=== PATIENT | male | born 1935 | race African-American/Black ===

== ENCOUNTER → 2018-05-31 09:14 | Outpatient (CLI) | payer MEDICARE, MEDICAID, SELFPAY ==
[2018-05-31 09:57] VITALS: PULSE 73; PULSE 79; PULSE 86; PULSE 87; PULSE 90; PULSE 92; PULSE 93; PULSE 94; O2SAT 81; O2SAT 84; O2SAT 85; O2SAT 86; O2SAT 90; O2SAT 92; O2SAT 95
--- NOTE | 2018-05-31 10:00 | CPS ---
Patient came in on own home portable concentrator unit at 4 lpm pulse dose. Patient SpO2 87% on room air. Placed patient back on home O2 to start test by the 1st minute patient was 85% and stopped walking, SpO2 continued to drop to 81%. Placed patient on 4 lpm continuous, recovered to 91%. Turned patient up to 6 lpm by the 4th minute, patient took multiple breaks throughout the rest of the test and was obviously very short of breath, SpO2 86% or lower the rest of the test.
--- NOTE | 2018-05-31 16:34 | WT_ITS ---
PSN 6 Minute Walk Test - 6 Minute Walk Test 6 Minute Walk Test: 6 Minute Walk Test PSN:6-Minute Walk Test Start: 05/31/18 09: 56 Freq: Status: Active Protocol: RESP.6MINW Document 05/31/18 09:57 KEVIN (Rec: 05/31/18 10:08 KEVIN [id number]) 6 Minute Walk Test Date Performed 05/31/18 Time Performed 09:30 Height 5 ft 10 in Weight: 100.698 kg Weight in Pounds 222.[address]: Yobany Bledsoe Assistive device used: None Pre-test Oxygen Flow Rate (L/min) (L/min) 4 Oxygen Delivery Method Nasal Cannula Pulse Ox (%) 92 Pulse Rate (60-100 beats/min) 73 Dyspnea Lissy Scale (0-10) 0 Exertion Lissy Scale (6-20) 6 1st minute Oxygen Flow Rate (L/min) (L/min) 4 Oxygen Delivery Method Nasal Cannula Pulse Ox (%) 81 Pulse Rate (60-100 beats/min) 87 Number of Rests Taken 1 2nd minute Oxygen Flow Rate (L/min) (L/min) 4 Oxygen Delivery Method Nasal Cannula Pulse Ox (%) 90 Pulse Rate (60-100 beats/min) 86 3rd minute Oxygen Flow Rate (L/min) (L/min) 4 Oxygen Delivery Method Nasal Cannula Pulse Ox (%) 84 Pulse Rate (60-100 beats/min) 90 Number of Rests Taken 1 4th minute Oxygen Flow Rate (L/min) (L/min) 6 Oxygen Delivery Method Nasal Cannula Pulse Ox (%) 86 Pulse Rate (60-100 beats/min) 92 Number of Rests Taken 1 5th minute Oxygen Flow Rate (L/min) (L/min) 6 Oxygen Delivery Method Nasal Cannula Pulse Ox (%) 86 Pulse Rate (60-100 beats/min) 93 Number of Rests Taken 1 6th minute Oxygen Flow Rate (L/min) (L/min) 6 Oxygen Delivery Method Nasal Cannula Pulse Ox (%) 85 Pulse Rate (60-100 beats/min) 94 Dyspnea Lissy Scale (0-10) 5 Exertion Lissy Scale (6-20) 15 Post-test Oxygen Flow Rate (L/min) (L/min) 6 Oxygen Delivery Method Nasal Cannula Pulse Ox (%) 95 Pulse Rate (60-100 beats/min) 79 Full Laps Walked 6 Partial Lap, Number of Tiles Walked 0 Total Distance Walked (ft) 354 05/31/18 10:00 Cardiopulmonary Services by Kayla Abarca Patient came in on own home portable concentrator unit at 4 lpm pulse dose. Patient SpO2 87% on room air. Placed patient back on home O2 to start test by the 1st minute patient was 85% and stopped walking, SpO2 continued to drop to 81 %. Placed patient on 4 lpm continuous, recovered to 91%. Turned patient up to 6 lpm by the 4th minute, patient took multiple breaks throughout the rest of the test and was obviously very short of breath, SpO2 86% or lower the rest of the test. Initialized on 05/31/18 10:00 - END OF NOTE - Interpretation Interpretation: The patient was noted to be 87% on room air. The patient was then placed on 4 L pulse dose by patient's home unit. Patient was then placed on continuous flow and despite 6 L/min, had saturations in the mid 80s throughout testing. In total, patient could only tolerate 354 feet of ambulation despite 6 L nasal cannula and required for breaks. These findings are consistent with a respiratory limitation exercise tolerance. - Recommendations Recommendations: The patient requires 4 L pulse dose while at rest. The patient should take measures to decrease exercise effort, such as a motorized scooter, for ambulation as patient was unable to control saturations despite 6 L nasal cannula oxygen.
== END ==
PROVIDERS: Family Provider Family Medicine; PCP Family Medicine; Visit Provider Internal Medicine Critical Care Medicine
DX: C34.91 Malignant neoplasm of unspecified part of right bronchus or lung (principal); C34.92 Malignant neoplasm of unspecified part of left bronchus or lung; J96.11 Chronic respiratory failure with hypoxia; J47.9 Bronchiectasis, uncomplicated
CPT/HCPCS: 94618

== ENCOUNTER → 2018-06-08 08:48 | Outpatient (CLI) | payer MEDICARE, MEDICAID, SELFPAY ==
--- NOTE | 2018-06-08 11:15 | PFTCOMP ---
COMPLETE PULMONARY FUNCTION TEST INTERPRETATION Brief HPI: Patient is a 82 year old Black male, currently under the care of myself, who presents to [facility] for complete pulmonary function tests secondary to diagnosis of COPD. Respiratory therapist reports good effort and reproducible results. Interpretation: Forced expiration spirometry shows no large airways obstructive ventilatory defect with an FEV1 of 49% predicted. There is no significant bronchodilator response by ATS criteria. Spirograms are of good quality and plateau normally. The respiratory flow volume loop shows a normal pattern. Lung volumes by body plethysmography show a decreased total lung capacity at 3.94 L, 62% predicted. All other lung volumes are reduced symmetrically. Diffusion capacity by carbon monoxide is decreased at 38% predicted. The airway resistance is elevated. No previous pulmonary function tests were available for review. Impression: Moderate restrictive ventilatory defect with a reduction diffusing capacity consistent with interstitial lung disease. Comparison to previous study would be helpful.
--- NOTE | 2018-06-08 11:18 | PFTCOMP_ITS ---
COMPLETE PULMONARY FUNCTION TEST INTERPRETATION Brief HPI: Patient is a 82 year old Black male, currently under the care of myself, who presents to [facility] for complete pulmonary function tests secondary to diagnosis of COPD. Respiratory therapist reports good effort and reproducible results. Interpretation: Forced expiration spirometry shows no large airways obstructive ventilatory defect with an FEV1 of 49% predicted. There is no significant bronchodilator response by ATS criteria. Spirograms are of good quality and plateau normally. The respiratory flow volume loop shows a normal pattern. Lung volumes by body plethysmography show a decreased total lung capacity at 3.94 L, 62% predicted. All other lung volumes are reduced symmetrically. Diffusion capacity by carbon monoxide is decreased at 38% predicted. The airway resistance is elevated. No previous pulmonary function tests were available for review. Impression: Moderate restrictive ventilatory defect with a reduction diffusing capacity consistent with interstitial lung disease. Comparison to previous study would be helpful.
== END ==
PROVIDERS: Family Provider Family Medicine; PCP Family Medicine; Visit Provider Internal Medicine Critical Care Medicine
DX: C34.91 Malignant neoplasm of unspecified part of right bronchus or lung (principal); C34.92 Malignant neoplasm of unspecified part of left bronchus or lung; J47.9 Bronchiectasis, uncomplicated; J96.11 Chronic respiratory failure with hypoxia
CPT/HCPCS: 94060; 94726; 94729

== ENCOUNTER → 2018-09-29 11:24 | Outpatient (CLI) | payer MEDICARE, MEDICAID, SELFPAY ==
[2018-08-23 09:37] VITALS: BMI 32.3
[2018-09-29 11:47] LABS: Mucous, Urine 0 SEEN /hpf (<or=2+)
[2018-09-29 12:07] LABS: Color, Urine Yellow (Yellow); Glucose, Dipstick Normal (Normal); Ketone-Dipstick Negative (Negative); Leukocyte Esterase-Dipstick 500 /ul (Negative); Nitrite-Dipstick Negative (Negative); Occult Blood-Urine 10 /ul (Negative); Protein-Dipstick Negative (Negative); Urine Bilirubin Dipstick Negative (Negative); Urine Clarity Cloudy (Clear); Urine Urobilinogen 1 mg/dl (Normal); Urine pH 6.5 (5.0 - 8.0)
[2018-09-29 12:16] LABS: Bacteria 4+ /hpf (None Seen); Red Blood Cells-Urine 0-5 SEEN /hpf (0-5); Squamous Epithelial Cells - UA 0-5 SEEN /hpf (0-5); White Blood Cells >100 SEEN /hpf (0-5)
--- OUTSIDE RECORDS SUMMARY | 2018-12-01 09:04 | XMS RPT_ITS ---
:1935 Author Organization OHIP Care Team Providers Name Role Phone SKYLAR CM Referring Unavailable SKYLAR CM Attending Unavailable JACQUIE REECE CNP Attending Unavailable DEVIKA MAYEN, DR. BECKY Chris Primary Care Unavailable ROSLYN VALLE MD Attending Unavailable DEVIKA MAYEN, DR. BECKY Chris Primary Care Unavailable Yobany Bledsoe Attending Unavailable BECKY JULIAN Referring Unavailable Ericka Contreras Attending Unavailable Ericka Contreras Referring Unavailable BECKY JULIAN Primary Care Unavailable Richa Hwang Attending Unavailable Yobany Bledsoe Attending Unavailable BECKY JULIAN Referring Unavailable Rakan, Yobany Attending Unavailable Rakan, Yobany Referring Unavailable DEVIKA, BECKY Primary Care Unavailable Rakan, Yobany Attending Unavailable Rakan, Yobany Referring Unavailable BECKY JULIAN Primary Care Unavailable Rakan, Yobany Attending Unavailable Rakan, Yobany Referring Unavailable Rakan, Yobany Attending Unavailable Rakan, Yobany Referring Unavailable PROBLEMS PROBLEMS DATE TYPE CONDITION / CODE ATTENDING STATUS SOURCE 06/21/2018 Active Pain in left NA Active [facility] shoulder / [facility] [place] M25.512(ICD-10) Repository 07/20/2018 Unknown 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, Yobany Active [facility] unspecified part of [facility] right bronchus or Repository lung / C34.91(ICD-10) 06/17/2018 Unknown J44.9 - Chronic Rakan, Yobany Active [facility] obstructive [facility] pulmonary disease, Hospital unspecified / Repository J44.9(ICD-10) 05/21/2018 Unknown J47.9 - Raakn, Yobany Active [facility] Bronchiectasis, Community uncomplicated / Hospital J47.9(ICD-10) Repository 05/21/2018 Unknown C34.92 - Malignant Rakan, Yobany Active [facility] unspecified part of Hospital left bronchus or Repository lung / C34.92(ICD-10) 05/21/2018 Unknown J96.11 - Chronic Rakan, Yobany Active [facility] respiratory failure Community with hypoxia / Hospital J96.11(ICD-10) Repository PROCEDURES PROCEDURES No Procedure Records FoundRESULTS RESULTS URINALYSIS, COMPLETE Collected: 09/29/2018 Status: F Source: [place] 11:00 AM [facility] REPOSITORY Order Comment: How was Urine Obtained? CLEAN CATCH TYPE CODE TESTS RESULT OUT OF RANGE REFERENCE UNITS LAB L400.3000 Yellow COLOR Normal Yellow LAB L400.3050 Clear Normal CLARITY Cloudy LAB L400.3200 Normal mg/dl Normal GLUCOSE, UR Normal LAB L400.3300 Negative mg/dL Normal BILIRUBIN URINE Negative LAB L400.3400 Negative mg/dl Normal KETONE UR Negative LAB L400.3465 1.002-1.030 Normal SP.GR. DIPSTX 1.010 LAB L400.3550 5.0 - 8.0 pH UR Normal 6.5 LAB L400.3600 Negative mg/dl PROT Normal DIPSTX Negative LAB L400.3700 Normal mg/dl High 1 UROBILI LAB L400.3750 Negative Normal NITRITE UR Negative LAB L400.3780 Negative /ul High 10 OCCULT BLOOD-UR LAB L400.3800 Negative /ul High LEUK ESTERASE 500 LAB L400.4050 0-5 /hpf WBC Normal >100 SEEN LAB L400.4100 0-5 /hpf Normal RBC-UA 0-5 SEEN LAB L400.4150 0-5 /hpf SQUAM Normal EPI 0-5 SEEN LAB L400.4300 None Seen /hpf 4+ Normal BACTERIA LAB L400.4350 <or=2+ /hpf 0 Normal MUCUS, URINE SEEN Performed By: #### L400.0001 #### [facility] [address] [place], [place], [id number] Observed: 09/29/2018 Status: F Source: [place] CULTURE, URINE 11:00 AM [facility] REPOSITORY Urine Culture ORGANISM 1: Klebsiella pneumoniae sp pneum [place] Count >100,000 Klebsiella pneumoniae sp pneum: REACTION Ampicillin $ >=32 R Ampicillin/Sulbactam $ 4 S Cefazolin $ <=4 S Cefepime $ <=0.12 S Ceftazidime *NF <=1 S Ceftriaxone $ <=0.25 S Ciprofloxacin $ <=0.25 S Ertapenim $$$ <=0.12 S ESBL NEG Gentamicin $ <=1 S Imipenem *NF <=0.25 S Levofloxacin $ <=0.12 S Nitrofurantoin $ 64 I Piperacillin/Tazobactam $$ <=4 S Tobramycin $ <=1 S Trimethoprim/Sulfametho $ <=20 S (NF) indicates non-formulary drug at [facility]. Approval by Infectious Disease Specialist required before non-formulary drugs may be ordered and/or dispensed. Performed By: #### M100.0650 #### [facility] [address] [place], [place], [id number] PULMONARY VISIT REPORT Observed: 08/23/2018 Status: F Source: [place] 10:10 AM [facility] REPOSITORY [facility] [place] [address] [place], [place] [address] OFFICE VISIT Date of Service: 08/23/18 MR#: [id number] Acct: [id number] Name: ISAURO JOHN Jr. Rep #: [id number] : 1935 Provider: Yobany Bledsoe MD Age/Sex: 83/M Location: [facility] [place] Status: Signed Assessment AND Plan Problems 1. Bronchiectasis without complication J47.9 2. Stage 3 severe COPD by GOLD classification J44.9 3. Chronic respiratory failure with hypoxia J96.11 4. History of lung cancer Z85.118 5. CHF (congestive heart failure), NYHA class III I50.9 Plan Patient's pulmonary function tests are not significantly changed from previous testing completed by Dr. Javed. Patient is not getting any signs or symptoms of acute exacerbation at this time. Patient does have a history of lung resection, which does account for patient's restriction on pulmonary function testing. Patient is currently on triple therapy and tolerating well. Stressed to the patient that oxygen should be placed at 6 L at all times to minimize the saturations. Signs and symptoms of exacerbation and sick policy were reviewed in detail. Patient voiced understanding. Did discuss about using a power wheelchair, but patient states his apartment is currently on the second floor and this would not be an option for him. Some of patient's lower extremity swelling are likely secondary to pulmonary hypertension associated with chronic hypoxemia. Stressed to the patient but saturation should be above 90% at all times. Increased oxygen to 6 L/min at all times. Continue current therapy. HPI 3 M FU: Chief Complaint: Test results Details: Patient is an 83-year-old black male, currently under the care of Dr. Julian, who presents for evaluation secondary to recent test results. Since last visit, patient denies any ER visits, hospitalizations or prednisone burst. Patient overall feels subjectively unchanged compared to previous. Patient reports that he has been compliant with inhalers and aerosols as prescribed. Patient denies any complications such as thrush, hoarseness or sore throat. Patient states he has been using oxygen at 4 L/min at all times. Patient does not routinely check his oxygen saturations. Patient continues to have a cough productive of clear to white sputum, typically in the morning. This has not changed recently. Patient reports that he lives on a second floor apartment. Patient used a motorized scooter in the past. Patient does have a concentrator that will go up to 6 L/min. Patient denies any syncopal or trauma events. Patient does have significant lower extremity edema on exam, but states this is about his baseline. Patient states his right leg typically swells more than the left. Patient denies any dietary indiscretions and states he has been compliant with Lasix therapy. 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 Accompanied by: Self Is patient in pain?: No Allergies ramipril [From [employer]] Allergy (Verified 08/23/18 09:37) erythema multiforme LISA Inhibitors Adverse Reaction (Verified 08/23/18 09:37) Hives Medications allopurinol 300 mg tablet 300 mg PO DAILY 05/14/18 [History Confirmed 08/23/18] amlodipine 10 mg tablet 10 mg PO DAILY 05/14/18 [History Confirmed 08/23/18] atorvastatin 20 mg tablet 20 mg PO DAILY 05/14/18 [History Confirmed 08/23/18] benzonatate 100 mg capsule 100 mg PO .qid PRN cap 05/14/18 [History Confirmed 08/23/18] budesonide-formoterol HFA 80 mcg-4.5 mcg/actuation aerosol inhaler 2 puff INHALATION BID 05/14/18 [History Confirmed 08/23/18] clotrimazole-betamethasone 1 %-0.05 % topical cream 1 applic TOPICAL BID 05/14/18 [History Confirmed 08/23/18] finasteride 5 mg tablet 5 mg PO DAILY 05/14/18 [History Confirmed 08/23/18] furosemide 40 mg tablet 40 mg PO .COMPLEX 05/14/18 [History Confirmed 08/23/18] glipizide 10 mg tablet 10 mg PO BID 05/14/18 [History Confirmed 08/23/18] ipratropium-albuterol 0.5 mg-3 mg(2.5 mg base)/3 mL nebulization soln 3 ml INHALATION .qid ml 05/14/18 [History Confirmed 08/23/18] losartan 100 mg tablet 100 mg PO DAILY 05/14/18 [History Confirmed 08/23/18] meloxicam 15 mg tablet 15 mg PO DAILY 05/14/18 [History Confirmed 08/23/18] metoprolol tartrate 50 mg tablet 25 mg PO BID tab 05/14/18 [History Confirmed 08/23/18] mometasone 50 mcg/actuation nasal spray 2 spray INTRANASAL DAILY 05/14/18 [History Confirmed 08/23/18] omega-3 fatty acids 1,000 mg capsule 2,000 mg PO DAILY cap 05/14/18 [History Confirmed 08/23/18] omeprazole 40 mg capsule,delayed release 40 mg PO DAILY 05/14/18 [History Confirmed 08/23/18] oruaiggqjzlx-rnmhngwcagffl-zwqgjwt 6.25 mg-5 mg-10 mg/5 mL syrup 5 ml PO Q4H PRN 05/14/18 [History Confirmed 08/23/18] sotalol 80 mg tablet 80 mg PO .COMPLEX 05/14/18 [History Confirmed 08/23/18] tramadol 50 mg tablet 50 mg PO Q4H PRN tab 05/14/18 [History Confirmed 08/23/18] PFSH Medical History Bilateral hydrocele (Acute) A-fib (Chronic) AAA (abdominal aortic aneurysm) (Chronic) Arteriosclerosis of coronary artery (Chronic) BPH (benign prostatic hyperplasia) (Chronic) Benign essential HTN (Chronic) Breast pain in male (Chronic) CHF (congestive heart failure) (Chronic) COPD (chronic obstructive pulmonary disease) (Chronic) Diabetes mellitus (Chronic) Fibrosis of lung (Chronic) Gout (Chronic) Gynecomastia (Chronic) Mixed hyperlipidemia (Chronic) RUBINA (obstructive sleep apnea) (Chronic) Osteoarthrosis (Chronic) PVD (peripheral vascular disease) (Chronic) Peripheral neuropathy (Chronic) Tinea pedis (Chronic) Surgical History Cataract extraction status (Resolved) H/O cardiac catheterization (Resolved) H/O carpal tunnel repair (Resolved) H/O cataract removal with insertion of prosthetic lens (Resolved) H/O esophagogastroduodenoscopy (Resolved) History of back surgery (Resolved) History of cardioversion (Resolved) History of orchiectomy (Resolved) Left thoracotomy and left upper lobectomy (Resolved) Local incision breast mass (Resolved) Right thoracotomy, right upper lobe wedge resection (Resolved) S/P AAA repair (Resolved) S/P TURP (Resolved) Traumatic amputation of left middle finger (Resolved) Family History Mother Cancer Father No problems noted. Social History household members: none housing: apartment current occupational exposures/hazards: No pets and animals: No Smoking Status: Former smoker quit date: 09/07/05 pack-years: 57 second hand exposure: No alcohol intake: never substance use type: does not use Review of Systems Const CONSTITUTIONAL: Negative anorexia, body ache, chills, daytime sleepiness, fever(s), night sweats, oral thrush, stops breathing during sleep, weight loss, sleeping in chair, fatigue, weight loss, weight gain, frequent colds, seasonal allergies, other, headache(s) or orthopnea EETM Ear Nose Throat Mouth: Positive hearing normal; negative hard of hearing, hoarseness, dry mouth in morning, change in vision, itchy eyes, eye pain, swallowing Difficulty, ear pain, nose bleed, headache(s), mouth pain, nasal congestion, nasal discharge, post nasal drip, sinus pain, sinus pressure, sore throat or other Cardio Cardiovascular: Positive edema Location: lower extremity and murmur (Grade 2 out of 6 systolic ejection murmur at the right sternal border); negative chest pain, chest pain at rest, chest pain with activity, irregular heart rhythm, shortness of breath when lying down, palpitations or other Resp Respiratory: Positive as per HPI, shortness of breath shortness of breath: Positive with activity and worsening, cough cough: Positive productive color: Positive green and white and inhalers; negative pain with cough, wheezing, chest congestion, chest tightness, pain on inspiration, increase use of rescue inhalers, snoring, apnea or other Gastro Gastrointestional: Negative bloody stools, change in appetite, difficulty swallowing, reflux, hematemesis, melena stool, loose stool, constipation or other Genitourinary: Negative blood in urine, nocturia, pain with urination or other Musc Musculoskeletal: Negative body pain, back pain, neck pain or other Skin/Breast Skin/Breast: Negative dry skin, itching, rash, unusual bruising, breast lump or other Neuro Neurological: Negative restless legs, confusion, weakness or other Psych Psychocological: Negative abnormal sleep pattern, anxiety, thoughts of hurting self/others, hopelessness or other Lymph Lymphatic: Negative easy bleeding, easy bruising, swollen lymph nodes or other Exam Const Constitutional: Positive conversant, cooperative, in no acute respiratory distress, well developed, well nourished, wearing supplemental oxygen, dyspenic, frail appearing and obese; negative appears older than stated age Head Head: Positive normocephalic and atraumatic; negative cyanosis of lips/distal nose, frontal sinus tenderness or maxillary sinus tenderness Eyes Eye: Positive clear conjunctiva; negative nystagmus, scleral abnormality or cataract present Ears Ear: Positive hearing normal and external ears normal; negative hard of hearing Nose Nose: Positive external nose normal, septum normal and no nasal discharge; negative epistaxis or nasal polyp Mouth Mouth: Positive oral mucosae normal, no lesions, dentures and crowded posterior oropharynx; negative post nasal drip, malodorous breath or oral thrush present Mallampati Score: III: Mallampati Score Neck Neck: Positive normal visual inspection, full ROM and trachea midline; negative lymphadenopathy or JVD Chest Wall Chest: Positive symmetric chest movement and increased A/P diameter; negative crepitus or tenderness Resp lung sounds: Positive rales, diminished, prolonged expiratory time and normal chronic state of increased work of breathing; negative wheezes, rhonchi or use of accessory muscles Cardio Cardiac: Positive murmur (Grade 2 out of 6 systolic ejection murmur at the right sternal border), regular rate, regular rhythm, S1 normal and S2 normal; negative rub or gallop GI GI: Positive normal to inspection, normal bowel sounds and obese; negative distended, ascites or epigastric tenderness Genitourinary: Positive deferred Musc Musculoskeletal: Positive in a wheelchair; negative kyphosis or scoliosis Skin Pulmonary Skin Exam: Positive intact and dermal atrophy; negative rash, lesion, ulcers or erythema Pulses Pulse: Yes radial pulses present Extremities Extremities: Yes capillary refill normal, Yes clubbing, No cyanosis, Yes edema (3+ right lower extremity, 2+ left lower extremity) Location: lower extremity Neuro Neurologic: Yes conversant, Yes no focal neuro deficits, Yes cooperative, Yes normal cognition, Yes normal coordination, Yes normal concentration, Yes understands questions Lymph Lymphatic: No lymphadenopathy Psych Appearance: Positive grossly normal Mental Status: Positive mental status grossly normal Mood: Positive congruent mood Affect: Positive normal affect Coding Level of Care Code Off vis,est,level 4 Diagnoses Bronchiectasis without complication J47.9 Bronchiectasis type: uncomplicated Stage 3 severe COPD by GOLD classification J44.9 Chronic respiratory failure with hypoxia J96.11 History of lung cancer Z85.118 CHF (congestive heart failure), NYHA class III I50.9 08/23/18 1010 <Electronically signed by Yobany Bledsoe MD> Date Yobany Bledsoe MD Cosigner Signature: Date (if applicable) CC: Becky Julian MD PROGRESS Observed: 06/21/2018 Status: COMPLETED Source: [place] 1:33 PM [facility] REPOSITORY HNO ID: [id number] Author: Skylar Cm Service: (none) Author Type: Physician Type: Progress Notes Filed: 07/09/2018 2:18 PM Note Text: Skylar Cm MD Department of Orthopaedics Orthopa[facility] [address] [facility] [address] Dept: [phone] Dept June 21, 2018 CHIEF COMPLAINT: New Patient (left shoulder pain ) HPI: Mr. Isauro John is a 82 year old male who presents with pain in the left shoulder over the past 3 months. 10 out of 10 sharp pain depending on his activities. He states it travels down the upper arm lateral brachium to the elbow. He does live alone and he has an aid. He is right-hand dominant. 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 FOLLOW UP INSTRUCTIONS: *As needed Mr. Isauro John was advised as to contrast therapies and/or to take analgesics/anti-inflammatories as needed and all contraindications were reviewed. OBJECTIVE: Mr. Isauro John is a pleasant 82 year old in no apparent distress. Gen:BP 107/61 Pulse 90 Ht 5' 10 (1.78m) Wt 225 lb (102.1kg) BMI 32.28 kg/(m2). nl development, non obese, no deformities ENT: Normocephalic, normal hearing, moist mucosa CV: Pulses:Radial= 2+ and symmetric, capillary refill < 2 secs, no peripheral edema/varicosities Skin: no rash, bruising or lesions. Good turgor. Psych: cooperative and appropriate, alert and oriented x 3, good mood and affect. Musculoskeletal: Supple range of motion of the cervical spine without pain. Spurling signs are negative. No atrophy of the deltoid and shoulder musculature. Left shoulder is nontender to palpation over the SC joint, clavicle and AC joint. Mildly positive tenderness to palpation over the posterior shoulder, Patrick palpation over the anterior lateral corner of the shoulder and greater tuberosity. Mild discomfort at the bicipital groove and coracoid. Active range of motion is 130? of forward elevation, 45? external rotation, and internal rotation to the left lateral hip. Passive range of motion is symmetrical, limited by pain, respectively. No laxity with anterior and posterior stress. Positive Neer and positive Dockery impingement signs. 4/5 strength with supraspinatus, infraspinatus and subscapularis. Sensation is intact in the axillary, radial, median and ulnar nerve distribution The risk, benefits and alternatives of injection and no injection therapy were discussed. The patient consented for an injection. Time out was conducted. The injection site was prepped with a Chlorhexadine swab. The left Subacromial joint was injected with a 25 gauge needle with 1 cc Celestone (6 mg), and 5 cc Marcaine 0.5%. The injection site was then dressed with a bandaid. The patient tolerated the injection well. The patient was instructed to call the office if any adverse local effects occurred or any if any questions or concerns arise. Skylar Cm MD IMAGING: IMPRESSION: Degenerative changes as discussed. Volunteer Manager: LARRY ? Transcribe Date/Time: Jun 22 2018 ?8:32A Dictated by : NEVILLE FREDERICK, DO This examination was interpreted and the report reviewed and electronically signed by: NEVILLE FREDERICK DO on Jun 22 2018 ?8:33AM ?EST Results-Findings * * *Final Report* * * DATE OF EXAM: Jun 21 2018 12:57PM ? WRX ? 5252 ?- ?XR SHLDR >/=3V AP/DENEEN AP/OTHR LT ?/ PROCEDURE REASON: Left shoulder pain, unspecified chronicity ?? ? * * * * Physician Interpretation * * * * ?Left shoulder HISTORY: ?82 years old Clinical information: Left shoulder pain, unspecified chronicity Pt. states Lt shoulder pain throughout for 3 months. No injury. TECHNIQUE: Images: ?XR SHLDR >/=3V AP/DENEEN AP/OTHR LT Comparison: ?None. RESULT: Findings: No fractures or dislocations are seen. Severe narrowing of the AC joint with well-corticated bone fragment adjacent to the dorsal aspect of the joint space. ?Marked narrowing of the glenohumeral joint. ?Marked degenerative changes in the cervical spine. Supporting Subjective Information Below: Past Medical History: No past medical history on file. Past Surgical History: PAST SURGICAL HISTORY Procedure Laterality Date - PAST SURGICAL HISTORY OF Bilateral 2007 Surgery on lungs due to cancer - PAST SURGICAL HISTORY OF 2016 AAA - PAST SURGICAL HISTORY OF 1985 Low back surgery - PAST SURGICAL HISTORY OF 2017 Surgery on prostate Family History: No family history on file. Social History:Social History Marital status: Single Spouse name: Years of education: Number of children: Social History Main Topics Smoking status: Former Smoker Packs/day: 0.75 Years: 0.00 Types: Cigarettes Quit date: 05/08/2006 Smokeless tobacco: Never Used Alcohol use: Yes Comment: socially Drug use: No Medications: Current Outpatient Prescriptions: losartan (COZAAR) 100 mg tablet Take 1 tablet by mouth once daily. atorvastatin (LIPITOR) 20 mg tablet Take 1 tablet by mouth once daily. sotalol (BETAPACE) 80 mg tablet 1 tablet in the morning and 1.5 tablets in the afternoon amLODIPine (NORVASC) 10 mg tablet Take 1 tablet by mouth once daily. meloxicam (MOBIC) 15 mg tablet Take 1 tablet by mouth once daily. allopurinol (ZYLOPRIM) 300 mg tablet Take 1 tablet by mouth once daily. finasteride (PROSCAR) 5 mg tablet Take 1 tablet by mouth once daily. metoprolol tartrate, short acting, (LOPRESSOR) 50 mg tablet Take 0.5 tablets by mouth twice daily. insulin glargine (LANTUS SOLOSTAR, BASAGLAR KWIKPEN) 100 unit/mL (3 mL) inpn Inject 10 Units subcutaneously daily at bedtime. furosemide (LASIX) 40 mg tablet Take 1 tablet by mouth three times daily. Omeprazole Magnesium (PRILOSEC OTC) 20 mg tablet Take 2 tablets by mouth once daily. ipratropium-albuterol (DUONEB) 0.5 mg-3 mg(2.5 mg base)/3 mL nebu Inhale 3 mL as instructed four times daily. budesonide-formoterol (SYMBICORT) 160-4.5 mcg/actuation inhaler Inhale 2 Puffs as instructed twice daily. glipiZIDE (GLUCOTROL) 10 mg tablet Take 1 tablet by mouth twice daily before meals. levoFLOXacin (LEVAQUIN) 750 mg tablet Take 1 tablet by mouth once daily. Current Facility-Administered Medications: betamethasone acetate-betamethasone sodium phosphate 6 mg, bupivacaine (PF) 25 mg INTRA-ARTICULAR ONCE Allergies: Altace [Ramipril] ROS: General (negative for fatigue, malaise, weight loss/gain) HEENT (negative for headache, earache, recent vision changes, sinus pain, sore throat) Respiratory (no recent shortness of breath, hemoptysis) CV (negative for chest tightness, palpitations) Musculoskeletal (see HPI) Psych (no depression, anxiety) REFERRING PHYSICIAN: Mr. Isauro John was referred to me for consultation by the following physician. This consultation note will be sent to the following physician by either mail or electronic medical record. SELF No primary care provider on file. No primary provider on file. This note was partially generated using hybris voice recognition system, and there may be some incorrect words, spellings, and punctuation that were not noted in checking the note before saving. Skylar Cm MD PROGRESS Observed: 06/21/2018 Status: COMPLETED Source: [place] 1:27 PM [facility] REPOSITORY HNO ID: [id number] Author: Violetta Mancuso Ma Service: (none) Author Type: (none) Type: Progress Notes Filed: 07/09/2018 2:18 PM Note Text: AMB ROOMING INTAKE FLOWSHEET DATA Risk Screening Do you have concerns about personal safety or safety in the home?: No Pain Pain Score: 10/10 Pain Location: Shoulder-Left Description: Sharp Duration Amount of Time: 3 Duration Units: Months Frequency: Intermittent Intervention: Other: See comment (none) Patient here today for evaluation of left shoulder pain x 3 months. States the pain travels down to his elbow. He does live alone, but has an aide that visits Thursday through Thursday. Right hand dominant. New x-ray at [facility]. XR SHLDR >/=3V Observed: 06/21/2018 Status: F Source: [place] AP/DENEEN AP/OTHR LT 12:57 PM [facility] REPOSITORY * * *Final Report* * * DATE OF EXAM: Jun 21 2018 12:57PM [facility] 5252 - XR SHLDR >/=3V AP/DENEEN AP/OTHR LT / PROCEDURE REASON: Left shoulder pain, unspecified chronicity * * * * Physician Interpretation * * * * Left shoulder HISTORY: 82 years old Clinical information: Left shoulder pain, unspecified chronicity Pt. states Lt shoulder pain throughout for 3 months. No injury. TECHNIQUE: Images: XR SHLDR >/=3V AP/DENEEN AP/OTHR LT Comparison: None. RESULT: Findings: No fractures or dislocations are seen. Severe narrowing of the AC joint with well-corticated bone fragment adjacent to the dorsal aspect of the joint space. Marked narrowing of the glenohumeral joint. Marked degenerative changes in the cervical spine. IMPRESSION: Degenerative changes as discussed. Volunteer Manager: PSCB Transcribe Date/Time: Jun 22 2018 8:32A Dictated by : NEVILLE FREDERICK DO This examination was interpreted and the report reviewed and electronically signed by: NEVILLE FREDERICK DO on Jun 22 2018 8:33AM EST [id number] CNOV Observed: 06/21/2018 Status: COMPLETED Source: [place] 12:55 PM [facility] REPOSITORY Office Visit (ORTHWS) ISAURO JOHN ([id number]) 1935 M Date Time Provider Department 06/21/18 12:55 PM SKYLAR CM During your visit today, we recorded the following information about you: Pulse Blood pressure Weight Height 90/minute 107/61 102.1 kg 1.778 m Violetta Lubinnayeli Santacruz 07/09/2018 2:18 PM Signed [facility] ROOMING INTAKE FLOWSHEET DATA Risk Screening Do you have concerns about personal safety or safety in the home?: No Pain Pain Score: 10/10 Pain Location: Shoulder-Left Description: Sharp Duration Amount of Time: 3 Duration Units: Months Frequency: Intermittent Intervention: Other: See comment (none) Patient here today for evaluation of left shoulder pain x 3 months. States the pain travels down to his elbow. He does live alone, but has an aide that visits Thursday through Thursday. Right hand dominant. New x- ray at [facility]. Skylar Cm MD 07/09/2018 2:18 PM Signed Skylar Cm MD Department of Orthopaedics Orthopaedics [facility] [address] Dept: [phone] Dept June 21, 2018 CHIEF COMPLAINT: New Patient (left shoulder pain ) HPI: Mr. Isauro John is a 82 year old male who presents with pain in the left shoulder over the past 3 months. 10 out of 10 sharp pain depending on his activities. He states it travels down the upper arm lateral brachium to the elbow. He does live alone and he has an aid. He is right- hand dominant. 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 FOLLOW UP INSTRUCTIONS: *As needed Mr. Isauro John was advised as to contrast therapies and/or to take analgesics/anti-inflammatories as needed and all contraindications were reviewed. OBJECTIVE: Mr. Isauro John is a pleasant 82 year old in no apparent distress. Gen:BP 107/61 Pulse 90 Ht 5' 10 (1.78m) Wt 225 lb (102.1kg) BMI 32.28 kg/(m2). nl development, non obese, no deformities ENT: Normocephalic, normal hearing, moist mucosa CV: Pulses:Radial= 2+ and symmetric, capillary refill < 2 secs, no peripheral edema/varicosities Skin: no rash, bruising or lesions. Good turgor. Psych: cooperative and appropriate, alert and oriented x 3, good mood and affect. Musculoskeletal: Supple range of motion of the cervical spine without pain. Spurling signs are negative. No atrophy of the deltoid and shoulder musculature. Left shoulder is nontender to palpation over the SC joint, clavicle and AC joint. Mildly positive tenderness to palpation over the posterior shoulder, Patrick palpation over the anterior lateral corner of the shoulder and greater tuberosity. Mild discomfort at the bicipital groove and coracoid. Active range of motion is 130? of forward elevation, 45? external rotation, and internal rotation to the left lateral hip. Passive range of motion is symmetrical, limited by pain, respectively. No laxity with anterior and posterior stress. Positive Neer and positive Dockery impingement signs. 4/5 strength with supraspinatus, infraspinatus and subscapularis. Sensation is intact in the axillary, radial, median and ulnar nerve distribution The risk, benefits and alternatives of injection and no injection therapy were discussed. The patient consented for an injection. Time out was conducted. The injection site was prepped with a Chlorhexadine swab. The left Subacromial joint was injected with a 25 gauge needle with 1 cc Celestone (6 mg), and 5 cc Marcaine 0.5%. The injection site was then dressed with a bandaid. The patient tolerated the injection well. The patient was instructed to call the office if any adverse local effects occurred or any if any questions or concerns arise. Skylar Cm MD IMAGING: IMPRESSION: Degenerative changes as discussed. Volunteer Manager: LARRY ? Transcribe Date/Time: Jun 22 2018 ?8:32A Dictated by : NEVILLE FREDERICK DO This examination was interpreted and the report reviewed and electronically signed by: NEVILLE FREDERICK DO on Jun 22 2018 ?8:33AM ?EST Results-Findings * * *Final Report* * * DATE OF EXAM: Jun 21 2018 12:57PM ? WRX ? 5252 ?- ?XR SHLDR >/=3V AP/DENEEN AP/OTHR LT ?/ PROCEDURE REASON: Left shoulder pain, unspecified chronicity ?? ? * * * * Physician Interpretation * * * * ?Left shoulder HISTORY: ?82 years old Clinical information: Left shoulder pain, unspecified chronicity Pt. states Lt shoulder pain throughout for 3 months. No injury. TECHNIQUE: Images: ?XR SHLDR >/=3V AP/DENEEN AP/OTHR LT Comparison: ?None. RESULT: Findings: No fractures or dislocations are seen. Severe narrowing of the AC joint with well-corticated bone fragment adjacent to the dorsal aspect of the joint space. ?Marked narrowing of the glenohumeral joint. ?Marked degenerative changes in the cervical spine. Supporting Subjective Information Below: Past Medical History: No past medical history on file. Past Surgical History: PAST SURGICAL HISTORY Procedure Laterality Date - PAST SURGICAL HISTORY OF Bilateral 2007 Surgery on lungs due to cancer - PAST SURGICAL HISTORY OF 2016 AAA - PAST SURGICAL HISTORY OF 1985 Low back surgery - PAST SURGICAL HISTORY OF 2017 Surgery on prostate Family History: No family history on file. Social History:Social History Marital status: Single Spouse name: Years of education: Number of children: Social History Main Topics Smoking status: Former Smoker Packs/day: 0.75 Years: 0.00 Types: Cigarettes Quit date: 05/08/2006 Smokeless tobacco: Never Used Alcohol use: Yes Comment: socially Drug use: No Medications: Current Outpatient Prescriptions: losartan (COZAAR) 100 mg tablet Take 1 tablet by mouth once daily. atorvastatin (LIPITOR) 20 mg tablet Take 1 tablet by mouth once daily. sotalol (BETAPACE) 80 mg tablet 1 tablet in the morning and 1.5 tablets in the afternoon amLODIPine (NORVASC) 10 mg tablet Take 1 tablet by mouth once daily. meloxicam (MOBIC) 15 mg tablet Take 1 tablet by mouth once daily. allopurinol (ZYLOPRIM) 300 mg tablet Take 1 tablet by mouth once daily. finasteride (PROSCAR) 5 mg tablet Take 1 tablet by mouth once daily. metoprolol tartrate, short acting, (LOPRESSOR) 50 mg tablet Take 0.5 tablets by mouth twice daily. insulin glargine (LANTUS SOLOSTAR, BASAGLAR KWIKPEN) 100 unit/mL (3 mL) inpn Inject 10 Units subcutaneously daily at bedtime. furosemide (LASIX) 40 mg tablet Take 1 tablet by mouth three times daily. Omeprazole Magnesium (PRILOSEC OTC) 20 mg tablet Take 2 tablets by mouth once daily. ipratropium-albuterol (DUONEB) 0.5 mg-3 mg(2.5 mg base)/3 mL nebu Inhale 3 mL as instructed four times daily. budesonide-formoterol (SYMBICORT) 160-4.5 mcg/actuation inhaler Inhale 2 Puffs as instructed twice daily. glipiZIDE (GLUCOTROL) 10 mg tablet Take 1 tablet by mouth twice daily before meals. levoFLOXacin (LEVAQUIN) 750 mg tablet Take 1 tablet by mouth once daily. Current Facility-Administered Medications: betamethasone acetate-betamethasone sodium phosphate 6 mg, bupivacaine (PF) 25 mg INTRA-ARTICULAR ONCE Allergies: Altace [Ramipril] ROS: General (negative for fatigue, malaise, weight loss/gain) HEENT (negative for headache, earache, recent vision changes, sinus pain, sore throat) Respiratory (no recent shortness of breath, hemoptysis) CV (negative for chest tightness, palpitations) Musculoskeletal (see HPI) Psych (no depression, anxiety) REFERRING PHYSICIAN: Mr. Isauro John was referred to sc for consultation by the following physician. This consultation note will be sent to the following physician by either mail or electronic medical record. SELF No primary care provider on file. No primary provider on file. This note was partially generated using hybris voice recognition system, and there may be some incorrect words, spellings, and punctuation that were not noted in checking the note before saving. Skylar Cm MD Referring Provider: SELF [200] Allergies As of Date: 06/21/2018 Noted Allergy Reaction ALTACE (RAMIPRIL) 06/21/2018 2 - Rash Date Reviewed: 06/21/2018 Reviewed by: Skylar Cm - Fully Assessed Reason for Visit: New Patient [172] Cmt: left shoulder pain Primary Visit Diagnosis:Chronic left shoulder pain [M25.512, G89.29] Other Visit Diagnosis:Complete tear of left rotator cuff [M75.122] Order(s):[] betamethasone acetate-betamethasone sodium phosphate 6 mg, bupivacaine (PF) 25 mgDisp: Rfl: Prescriptions as of 06/21/2018 Sig: LOSARTAN 100 MG TABLET Take 1 tablet by mouth once d* ATORVASTATIN 20 MG TABLET Take 1 tablet by mouth once d* SOTALOL 80 MG TABLET 1 tablet in the morning and 1* AMLODIPINE 10 MG TABLET Take 1 tablet by mouth once d* MELOXICAM 15 MG TABLET Take 1 tablet by mouth once d* ALLOPURINOL 300 MG TABLET Take 1 tablet by mouth once d* FINASTERIDE 5 MG TABLET Take 1 tablet by mouth once d* METOPROLOL TARTRATE 50 MG TAB* Take 0.5 tablets by mouth twi* INSULIN GLARGINE (U-100) 100 * Inject 10 Units subcutaneousl* FUROSEMIDE 40 MG TABLET Take 1 tablet by mouth three * OMEPRAZOLE MAGNESIUM 20 MG TA* Take 2 tablets by mouth once * IPRATROPIUM-ALBUTEROL 0.5 MG-* Inhale 3 mL as instructed fou* BUDESONIDE-FORMOTEROL HFA 160* Inhale 2 Puffs as instructed * GLIPIZIDE 10 MG TABLET Take 1 tablet by mouth twice * LEVOFLOXACIN 750 MG TABLET Take 1 tablet by mouth once d* Problem List As Of Date: 06/21/2018 (None) Prescriptions ordered this encounter Disp Refills Start 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 06/21/2018 06/21/2018 Class: Suppress Questions Route: [facility] Encounter Status:Closed by SKYLAR CM MD on 07/09/18 PROGRESS Observed: 06/21/2018 Status: COMPLETED Source: [place] 12:40 PM [facility] [place] REPOSITORY O ID: [id number] Author: Calderon Rollins (Rt) Avel Rodriguez Service: (none) Author Type: [employer] Type: Progress Notes Filed: 06/21/2018 12:56 PM Note Text: Radiology Service Progress Note PATIENT NAME: Isauro John DATE OF SERVICE: June 21, 2018 TIME: 12:40 PM PATIENT IDENTITY VERIFICATION COMPLETED USING TWO (2) METHODS: Patient confirmed name verbally and Date of . PATIENT GENDER DATA: Male PATIENT RELEVANT IMPLANT DATA REVIEWED: Not Applicable RADIOLOGY DEPARTMENT: General X-ray: Exam(s) Completed: Upper Extremity X-Ray(s): Shoulder, AP / TRUE AP / AXILLARY left : PERIPHERAL IV DATA: Not applicable SIGNED BY: RT Antonino June 21, 2018 12:40 PM PULMONARY FUNCTION Observed: 06/08/2018 Status: F Source: [place] REPORT COMP 11:18 AM [facility] REPOSITORY [facility] Pulmonary Services/Neurology [address] [place] [address] MR#: [id number] Acct: [id number] Name: ISAURO JOHN Jr. Rep #: [id number] : 1935 82 From: Yobany Bledsoe MD Referring Dr: Yobany Bledsoe MD Status: REG CLI Ordering Dr: Date: Location: [facility] Sex: M AA COMPLETE PULMONARY FUNCTION TEST INTERPRETATION Brief HPI: Patient is a 82 year old Black male, currently under the care of myself, who presents to [facility] for complete pulmonary function tests secondary to diagnosis of COPD. Respiratory therapist reports good effort and reproducible results. Interpretation: Forced expiration spirometry shows no large airways obstructive ventilatory defect with an FEV1 of 49% predicted. There is no significant bronchodilator response by ATS criteria. Spirograms are of good quality and plateau normally. The respiratory flow volume loop shows a normal pattern. Lung volumes by body plethysmography show a decreased total lung capacity at 3.94 L, 62% predicted. All other lung volumes are reduced symmetrically. Diffusion capacity by carbon monoxide is decreased at 38% predicted. The airway resistance is elevated. No previous pulmonary function tests were available for review. Impression: Moderate restrictive ventilatory defect with a reduction diffusing capacity consistent with interstitial lung disease. Comparison to previous study would be helpful. 06/08/181117 <Electronically signed by Yobany Bledsoe MD> Date Yobany Bledsoe MD CC: Becky Julian MD; Yobany Bledsoe MD Date Dictated: 06/08/181114 Date Transcribed: 06/08/181114 Volunteer Manager: DAVID Signed 6 MINUTE WALK TEST Observed: 05/31/2018 Status: F Source: [place]ON 4:34 PM [facility] REPOSITORY [facility] Pulmonary Services/Neurology [address] [place] [address] MR#: [id number] Acct: [id number] Name: ISAURO JOHN Jr. Rep #: [id number] : 1935 82 From: Yobany Bledsoe MD Referring Dr: Yobany Bledsoe MD Date: Ordering Dr: Sex: M AA Location: PSN PSN 6 Minute Walk Test - 6 Minute Walk Test 6 Minute Walk Test: 6 Minute Walk Test PSN:6-Minute Walk Test Start: 05/31/18 09:56 Freq: Status: Active Protocol: RESP.6MINW Document 05/31/18 09:57 [facility] (Rec: 05/31/18 10:08 SF[facility]ON [id number]) 6 Minute Walk Test Date Performed 05/31/18 Time Performed 09:30 Height 5 ft 10 in Weight: 100.698 kg Weight in Pounds 222.[address]: Yobany Bledsoe Assistive device used: None Pre-test Oxygen Flow Rate (L/min) (L/min) 4 Oxygen Delivery Method Nasal Cannula Pulse Ox (%) 92 Pulse Rate (60-100 beats/min) 73 Dyspnea Lissy Scale (0-10) 0 Exertion Lissy Scale (6-20) 6 1st minute Oxygen Flow Rate (L/min) (L/min) 4 Oxygen Delivery Method Nasal Cannula Pulse Ox (%) 81 Pulse Rate (60-100 beats/min) 87 Number of Rests Taken 1 2nd minute Oxygen Flow Rate (L/min) (L/min) 4 Oxygen Delivery Method Nasal Cannula Pulse Ox (%) 90 Pulse Rate (60-100 beats/min) 86 3rd minute Oxygen Flow Rate (L/min) (L/min) 4 Oxygen Delivery Method Nasal Cannula Pulse Ox (%) 84 Pulse Rate (60-100 beats/min) 90 Number of Rests Taken 1 4th minute Oxygen Flow Rate (L/min) (L/min) 6 Oxygen Delivery Method Nasal Cannula Pulse Ox (%) 86 Pulse Rate (60-100 beats/min) 92 Number of Rests Taken 1 5th minute Oxygen Flow Rate (L/min) (L/min) 6 Oxygen Delivery Method Nasal Cannula Pulse Ox (%) 86 Pulse Rate (60-100 beats/min) 93 Number of Rests Taken 1 6th minute Oxygen Flow Rate (L/min) (L/min) 6 Oxygen Delivery Method Nasal Cannula Pulse Ox (%) 85 Pulse Rate (60-100 beats/min) 94 Dyspnea Lissy Scale (0-10) 5 Exertion Lissy Scale (6-20) 15 Post-test Oxygen Flow Rate (L/min) (L/min) 6 Oxygen Delivery Method Nasal Cannula Pulse Ox (%) 95 Pulse Rate (60-100 beats/min) 79 Full Laps Walked 6 Partial Lap, Number of Tiles Walked 0 Total Distance Walked (ft) 354 05/31/18 10:00 Cardiopulmonary Services by aKyla Abarca Patient came in on own home portable concentrator unit at 4 lpm pulse dose. Patient SpO2 87% on room air. Placed patient back on home O2 to start test by the 1st minute patient was 85% and stopped walking, SpO2 continued to drop to 81%. Placed patient on 4 lpm continuous, recovered to 91%. Turned patient up to 6 lpm by the 4th minute, patient took multiple breaks throughout the rest of the test and was obviously very short of breath, SpO2 86% or lower the rest of the test. Initialized on 05/31/18 10:00 - END OF NOTE - Interpretation Interpretation: The patient was noted to be 87% on room air. The patient was then placed on 4 L pulse dose by patient's home unit. Patient was then placed on continuous flow and despite 6 L/min, had saturations in the mid 80s throughout testing. In total, patient could only tolerate 354 feet of ambulation despite 6 L nasal cannula and required for breaks. These findings are consistent with a respiratory limitation exercise tolerance. - Recommendations Recommendations: The patient requires 4 L pulse dose while at rest. The patient should take measures to decrease exercise effort, such as a motorized scooter, for ambulation as patient was unable to control saturations despite 6 L nasal cannula oxygen. 05/31/18 1634 <Electronically signed by Yobany Bledsoe MD> Date Yobany Bledsoe MD CC: Date Dictated: 05/31/18 1632 Date Transcribed: 05/31/181631 Volunteer Manager: Yobany Bledsoe Signed PULMONARY VISIT REPORT Observed: 05/21/2018 Status: F Source: [place] 10:17 AM [facility] REPOSITORY [facility] [address] [place] [address] OFFICE VISIT Date of Service: 05/21/18 MR#: [id number] Acct: [id number] Name: ISAURO JOHN Rep #: [id number] : 1935 Provider: Yobany Bledsoe MD Age/Sex: 82/M Location: [facility] Status: Signed Assessment AND Plan Problems 1. 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 Adenocarcinoma of left lung C34.92 3. Bronchiectasis without complication J47.9 4. Stage 3 severe COPD by GOLD classification J44.9 5. Chronic respiratory failure with hypoxia J96.11 Plan Patient with advanced pulmonary disease resulting in 2 separate lobectomies, bronchiectasis and chronic need for supplemental oxygen. Patient is currently not smoking and living independently. Patient currently on triple therapy and appears to be tolerating well. Stressed to the patient that oxygen saturation should be kept above 90% at all times. Extensive discussion about CODE STATUS and patient is a full code at this time. Patient does not have any DPOA, but this was also discussed (Total discussion time of 10 minutes her CODE STATUS). Will obtain a complete pulmonary function test for quantification and clarification of lung function. We will also obtain a walking oximetry and clarification of supplemental oxygen needs. Obtain complete PFT and walking oximetry. Oxygen to keep saturations greater than 90% at all times. Orders Orders: Plan Detail Follow Up 3 Months (BWA) HPI COPD, Establish care: Chief Complaint: Establish care Details: Patient is an 82-year-old -Australian male, currently under the care of Dr. Julian, who presents for an initial consultation to establish care. Patient was previously cared for by Dr. Javed, who is moving his practice to [place], so patient seeks to reestablish care. Patient does have a very complex pulmonary past medical history in addition to a cardiac history. Patient is currently on 4 L nasal cannula oxygen is 34 times a day. Patient is also on Symbicort therapy. Patient states he tolerates this well and denies any complications such as tremor, thrush or hoarseness. Patient does have a history of 2 separate episodes of cancer status post lobectomies. Patient also has a history of bronchiectasis that has been complicated with hemoptysis in the past. That being said, patient states that he is pretty much at his baseline. Patient states he was last hospitalized in 2013 with pneumonia. Patient does check his pulse oximeter on a routine basis. At home, patient uses 4 L nasal cannula and states that his saturations are typically between 90 and 96%. At home, patient states his exercise tolerance is approximately 20 yards. When patient leaves the home, patient does have a portable concentrator and states that he leaves it on 2 L nasal cannula secondary to concerns for the battery dying. Patient does not have many family members close and states that all of his kids are in [place]. Patient does have a sister that lives in [place]. Patient currently lives alone. Patient does have a medical alert bracelet. Patient does not have a DURABLE POWER OF RECREATION TECHNICIAN for healthcare. Extensive conversation about CODE STATUS was undertaken. Patient states that he would want all measures including tracheostomy if necessary to prolong his life. Patient does have one person in the area that he may trust with a DURABLE POWER OF RECREATION TECHNICIAN, but he states that he will decide this at a future time. Patient reports that he is a former patient of Dr. Keith,, but has been cared for by his nurse practitioner since his unfortunate . Patient does report lower extremity swelling on a routine basis, typically greater on the right and the left. Patient denies any history of DVT or PE. Patient has never had surgery of his extremities. Patient reports wheezing on a daily basis. Patient does experience some chest tightness with ambulation. Patient has a cough productive of clear to green sputum on a routine basis. Patient does not believe this is changed significantly recently. Patient does report working for a [employer] in the past. 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 Documentation reviewed 104 pages of documentation were reviewed from patient's primary care physician. Patient with multiple cardiac issues and documentation of rales on office visit. Patient was seen by Dr. Javed in the past, who reports a history of stage Ib non-small cell lung cancer, squamous cell variety in the left upper lobe status post lobectomy and chemotherapy. In 2007, patient had a PET positive biopsy adenocarcinoma of the right upper lobe with lobectomy. Patient also has a history of interstitial lung disease thought to be secondary to chemotherapy and severe bronchiectasis of the right lower lobe. Patient has had hemoptysis in the past, but this was thought to be secondary to his bronchiectasis. Patient reportedly also has complex sleep apnea. Per office notes, last spirometry in 2014 showed an FEV1 of 44%. Intake Vital Signs05/21/18 Height 5 ft 10 in 05/21/18 Weight: 104.78 kg 05/21/18 Body Mass Index (BMI) 33.1 Intake Visit Reasons: COPD, Establish care Pigment Making Supervisor Required: No Accompanied by: Self Is patient in pain?: No Allergies ramipril [From [employer]] Allergy (Verified 05/14/18 07:48) erythema multiforme LISA Inhibitors Adverse Reaction (Verified 05/14/18 07:48) Hives Medications allopurinol 300 mg tablet 300 mg PO DAILY 05/14/18 [History Confirmed 05/14/18] amlodipine 10 mg tablet 10 mg PO DAILY 05/14/18 [History Confirmed 05/14/18] atorvastatin 20 mg tablet 20 mg PO DAILY 05/14/18 [History Confirmed 05/14/18] benzonatate 100 mg capsule 100 mg PO .qid PRN cap 05/14/18 [History Confirmed 05/14/18] budesonide-formoterol HFA 80 mcg-4.5 mcg/actuation aerosol inhaler 2 puff INHALATION BID 05/14/18 [History Confirmed 05/14/18] clotrimazole-betamethasone 1 %-0.05 % topical cream 1 applic TOPICAL BID 05/14/18 [History Confirmed 05/14/18] finasteride 5 mg tablet 5 mg PO DAILY 05/14/18 [History Confirmed 05/14/18] furosemide 40 mg tablet 40 mg PO .COMPLEX 05/14/18 [History Confirmed 05/14/18] glipizide 10 mg tablet 10 mg PO BID 05/14/18 [History Confirmed 05/14/18] ipratropium-albuterol 0.5 mg-3 mg(2.5 mg base)/3 mL nebulization soln 3 ml INHALATION .qid ml 05/14/18 [History Confirmed 05/14/18] losartan 100 mg tablet 100 mg PO DAILY 05/14/18 [History Confirmed 05/14/18] meloxicam 15 mg tablet 15 mg PO DAILY 05/14/18 [History Confirmed 05/14/18] metoprolol tartrate 50 mg tablet 25 mg PO BID tab 05/14/18 [History Confirmed 05/14/18] mometasone 50 mcg/actuation nasal spray 2 spray INTRANASAL DAILY 05/14/18 [History Confirmed 05/14/18] omega-3 fatty acids 1,000 mg capsule 2,000 mg PO DAILY cap 05/14/18 [History Confirmed 05/14/18] omeprazole 40 mg capsule,delayed release 40 mg PO DAILY 05/14/18 [History Confirmed 05/14/18] ejomtqntvmyq-lvxbbmeqgkcyk-dgbafxw 6.25 mg-5 mg-10 mg/5 mL syrup 5 ml PO Q4H PRN 05/14/18 [History Confirmed 05/14/18] sotalol 80 mg tablet 80 mg PO .COMPLEX 05/14/18 [History Confirmed 05/14/18] tramadol 50 mg tablet 50 mg PO Q4H PRN tab 05/14/18 [History Confirmed 05/14/18] PFS Medical History Bilateral hydrocele (Acute) A-fib (Chronic) AAA (abdominal aortic aneurysm) (Chronic) Arteriosclerosis of coronary artery (Chronic) BPH (benign prostatic hyperplasia) (Chronic) Benign essential HTN (Chronic) Breast pain in male (Chronic) CHF (congestive heart failure) (Chronic) COPD (chronic obstructive pulmonary disease) (Chronic) Diabetes mellitus (Chronic) Fibrosis of lung (Chronic) Gout (Chronic) Gynecomastia (Chronic) Mixed hyperlipidemia (Chronic) RUBINA (obstructive sleep apnea) (Chronic) Osteoarthrosis (Chronic) PVD (peripheral vascular disease) (Chronic) Peripheral neuropathy (Chronic) Tinea pedis (Chronic) Surgical History Cataract extraction status (Resolved) H/O cardiac catheterization (Resolved) H/O carpal tunnel repair (Resolved) H/O cataract removal with insertion of prosthetic lens (Resolved) H/O esophagogastroduodenoscopy (Resolved) History of back surgery (Resolved) History of cardioversion (Resolved) History of orchiectomy (Resolved) Left thoracotomy and left upper lobectomy (Resolved) Local incision breast mass (Resolved) Right thoracotomy, right upper lobe wedge resection (Resolved) S/P AAA repair (Resolved) S/P TURP (Resolved) Traumatic amputation of left middle finger (Resolved) Family History Mother Cancer Father No problems noted. Social History household members: none housing: apartment current occupational exposures/hazards: No pets and animals: No Smoking Status: Former smoker quit date: 09/07/05 pack-years: 57 second hand exposure: No alcohol intake: never substance use type: does not use Review of Systems Const CONSTITUTIONAL: Positive fatigue; negative anorexia, body ache, chills, daytime sleepiness, fever(s), night sweats, oral thrush, stops breathing during sleep, weight loss, sleeping in chair, weight loss, weight gain, frequent colds, seasonal allergies, other, headache(s) or orthopnea EETM Ear Nose Throat Mouth: Positive hard of hearing; negative hoarseness, dry mouth in morning, change in vision, itchy eyes, eye pain, swallowing Difficulty, ear pain, nose bleed, headache(s), mouth pain, nasal congestion, nasal discharge, post nasal drip, sinus pain, sinus pressure, sore throat or other Cardio Cardiovascular: Positive edema Location: lower extremity and murmur (Grade 2 out of 6 systolic ejection murmur at the right sternal border); negative chest pain, chest pain at rest, chest pain with activity, irregular heart rhythm, shortness of breath when lying down, palpitations or other Resp Respiratory: Positive as per HPI, shortness of breath, wheezing, cough cough: Positive productive color: Positive clear and green and chest tightness; negative pain with cough, chest congestion, pain on inspiration, inhalers, increase use of rescue inhalers, snoring, apnea or other Gastro Gastrointestional: Negative bloody stools, change in appetite, difficulty swallowing, reflux, hematemesis, melena stool, loose stool, constipation or other Genitourinary: Negative blood in urine, nocturia, pain with urination or other Musc Musculoskeletal: Negative body pain, back pain, neck pain or other Skin/Breast Skin/Breast: Negative dry skin, itching, rash, unusual bruising, breast lump or other Neuro Neurological: Positive weakness; negative restless legs, confusion or other Psych Psychocological: Negative abnormal sleep pattern, anxiety, thoughts of hurting self/others, hopelessness or other Lymph Lymphatic: Negative easy bleeding, easy bruising, swollen lymph nodes or other Exam Const Constitutional: Positive conversant, cooperative, in no acute respiratory distress, well developed, well nourished, good hygiene, obese, wearing supplemental oxygen and frail appearing Head Head: Positive normocephalic and atraumatic; negative cyanosis of lips/distal nose, frontal sinus tenderness or maxillary sinus tenderness Eyes Eye: Positive clear conjunctiva; negative nystagmus, scleral abnormality or cataract present Ears Ear: Positive hard of hearing and external ears normal Hearing aids in place Nose Nose: Positive external nose normal, septum normal and no nasal discharge; negative epistaxis or nasal polyp Mouth Mouth: Positive oral mucosae normal, no lesions and crowded posterior oropharynx; negative post nasal drip, malodorous breath or oral thrush present Mallampati Score: III: Mallampati Score Neck Neck: Positive normal visual inspection, full ROM and trachea midline; negative lymphadenopathy or JVD Chest Wall Chest: Positive symmetric chest movement and increased A/P diameter; negative crepitus or tenderness Resp lung sounds: Positive clear to auscultation, rales (Right base), diminished, wheeze present on forced exhalation, prolonged expiratory time and normal chronic state of increased work of breathing; negative wheezes, rhonchi, use of accessory muscles or dullness to percussion Cardio Cardiac: Positive murmur (Grade 2 out of 6 systolic ejection murmur at the right sternal border), regular rate, regular rhythm, S1 normal and S2 normal; negative rub or gallop GI GI: Positive normal to inspection, normal bowel sounds and obese; negative distended, ascites or epigastric tenderness Genitourinary: Positive deferred Musc Musculoskeletal: Positive using an assistive device for ambulation; negative kyphosis or scoliosis Skin Pulmonary Skin Exam: Positive intact and scaly; negative rash, lesion, ulcers, erythema or dermal atrophy Pulses Pulse: Yes radial pulses present Extremities Extremities: Yes capillary refill normal, Yes clubbing, No cyanosis, Yes edema (Right greater than left, 3+) Location: lower extremity Neuro Neurologic: Yes conversant, Yes no focal neuro deficits, Yes normal concentration, Yes understands questions, Yes cooperative, Yes normal cognition, Yes normal coordination Lymph Lymphatic: No lymphadenopathy Psych Appearance: Positive grossly normal Mental Status: Positive mental status grossly normal Mood: Positive congruent mood Affect: Positive normal affect Coding Level of Care Code Off vis,new,level 5 Diagnoses 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 Patient is a full code without DPOA. 05/21/18 1017 <Electronically signed by Yobany Bledsoe MD> Date Yobany Bledsoe MD Cosigner Signature: Date (if applicable) CC: Becky Julian MD CBC Collected: 04/15/2018 Status: F Source: [facility] 9:11 AM [facility]ATION REPOSITORY TYPE CODE TESTS RESULT OUT OF REFERENCE UNITS RANGE LAB WBC(LOINC) 4.60-10.80 10 3/mcL High WBC 10.90 LAB RBCCT(LOINC 4.04-6.13 10 6/mcL ) RBC 5.49 LAB HGB(LOINC) 14.0-18.0 G/dL Low Hgb 12.6 LAB HCT(LOINC) 42.0-52.0 % Low Hct 39.8 LAB MCV(LOINC) 80.0-94.0 fL Low MCV 72.5 LAB MCH(LOINC) 27.0-31.2 pg Low MCH 22.9 LAB MCHC(LOINC) 31.8-35.4 G/dL Low MCHC 31.6 LAB RDW(LOINC) 11.5-14.5 % High RDW 18.4 LAB PLT(LOINC) 130-400 10 3/mcL Platelet 189 LAB MPV(LOINC) 7.4-10.4 fL MPV 9.4 Performed By: #### CBC, ADIFF, MORPH, ANEU #### Gaby [address] [address] #### LD, CMP, GFR, CBCPR #### [place] [address] .AUTO DIFF Collected: 04/15/2018 Status: F Source: [facility] 9:11 AM [facility] REPOSITORY TYPE CODE TESTS RESULT OUT OF REFERENCE UNITS RANGE LAB ROSALEE(LOINC) 37.0-80.0 % Neutrophil % 71.4 LAB LYM(LOINC) 10.0-50.0 % Lymphocyte % 21.7 LAB MON(LOINC) 1.7-13.0 % Monocyte % 4.8 LAB EO(LOINC) 0.0-7.0 % Eosinophil % 1.5 LAB BAS(LOINC) 0.0-2.5 % Basophil % 0.6 LAB ABLYM(LOIN 0.77-3.85 10 3/mcL C) Lymphocyte, 2.40 Absolute LAB BREANNA(LOINC 0.15-1.00 10 3/mcL ) Monocyte, 0.50 Absolute LAB AEOS(LOINC 0.00-0.40 10 3/mcL ) Eosinophil, 0.20 Absolute LAB ABAS(LOINC 0.00-0.19 10 3/mcL ) Basophil, 0.10 Absolute Performed By: #### CBC, ADIFF, MORPH, ANEU #### [place] [address] #### LD, CMP, GFR, CBCPR #### [place] [address] .MORPH Collected: 04/15/2018 Status: F Source: [facility] 9:11 AM [facility] REPOSITORY TYPE CODE TESTS RESULT OUT OF REFERENCE UNITS RANGE LAB PLTE(LOINC ) Platelet Estimate Normal LAB POIK(LOINC ) Poik Moderate LAB HYPC(LOINC ) Hypochrom Slight LAB OVAL(LOINC ) Ovalocytes Several Performed By: #### CBC, ADIFF, MORPH, ANEU #### [place] [address] #### LD, CMP, GFR, CBCPR #### [place] [address] .NEUABS Collected: 04/15/2018 Status: F Source: [facility] 9:11 AM [facility] REPOSITORY TYPE CODE TESTS RESULT OUT OF REFERENCE UNITS RANGE LAB ANEU(LOINC) 2.85-6.16 10 3/mcL High Neutrophil, 7.80 Absolute Performed By: #### CBC, ADIFF, MORPH, ANEU #### [place] [address] [place], [place] [address] #### LD, CMP, GFR, CBCPR #### [facility] [address] [place] [address] LDH Collected: 04/15/2018 Status: F Source: [facility] 9:11 AM [facility] REPOSITORY TYPE CODE TESTS RESULT OUT OF RANGE REFERENCE UNITS LAB LD(LOINC) 85-227 U/L LDH 211 Performed By: #### CBC, ADIFF, MORPH, ANEU #### [place] [address] [place], [place] [address] #### LD, CMP, GFR, CBCPR #### [facility] [address] [place] [address] CMP Collected: 04/15/2018 Status: F Source: [facility] 9:11 AM [facility] REPOSITORY TYPE CODE TESTS RESULT OUT OF REFERENCE UNITS RANGE LAB GLU(LOINC) 83-110 mg/dL Glucose High Level 313 LAB NA(LOINC) 136-145 mmol/L Sodium Level 144 LAB K(LOINC) 3.5-5.1 mmol/L Potassium Level 3.7 LAB CL(LOINC) 98-107 mmol/L Chloride 105 LAB CO2(LOINC) 23-31 mmol/L CO2 30 LAB EBAL(LOINC mEq/L ) Electrolyte Balance 9.0 LAB BUN(LOINC) 7-18 mg/dL BUN 15 LAB CRE(LOINC) 0.70-1.30 mg/dL Creatinine Lvl (s) 1.04 LAB BC(LOINC) 7-27 ratio BUN/Creatinine 14 Ratio LAB CA(LOINC) 8.4-10.2 mg/dL Calcium Lvl 8.4 LAB PROT(LOINC 6.4-8.2 G/dL ) Total Protein 6.4 LAB ALB(LOINC) 3.4-4.8 G/dL Low Albumin Level 3.0 LAB GLB(LOINC) G/dL Globulin 3.4 LAB AG(LOINC) 1.1-2.5 ratio Low A/G Ratio 0.9 LAB BILT(LOINC 0.2-1.0 mg/dL ) Bili Total 0.5 LAB AP(LOINC) 40-135 U/L Alk Phos 106 LAB AST(LOINC) 10-40 U/L AST/SGOT 13 LAB ALT(LOINC) 10-35 U/L ALT/SGPT 33 Performed By: #### DANA MARTINEZ MORPH, ANEU #### Gaby [address] [address] [place], [place] [address] #### LD, CMP, GFR, CBCPR #### [address] [address] .GFR Collected: 04/15/2018 Status: F Source: [facility] 9:11 AM [facility]OUNDATION REPOSITORY TYPE CODE TESTS RESULT OUT OF REFERENCE UNITS RANGE LAB GFRAA(LOINC ml/min/1.73 ) sqm GFR 83 Australian Result Comment: GFR Population mean for , Non- Americans Ages 20-29 = 116 mL/min/1.73 sq.m. Ages 30-39 = 107 mL/min/1.73 sq.m. Ages 40-49 = 99 mL/min/1.73 sq.m. Ages 50-59 = 93 mL/min/1.73 sq.m. Ages 60-69 = 85 mL/min/1.73 sq.m. Ages 70+ = 75 mL/min/1.73 sq.m. Chronic Kidney Disease: Less than 60 mL/min/1.73 square meters End Stage Renal Disease: Less than 15 mL/min/1.73 square meters LAB GFRNO(LOINC) ml/min/1.73sqm GFR Non- 68 Result Comment: GFR Population mean for , Non- Americans Ages 20-29 = 116 mL/min/1.73 sq.m. Ages 30-39 = 107 mL/min/1.73 sq.m. Ages 40-49 = 99 mL/min/1.73 sq.m. Ages 50-59 = 93 mL/min/1.73 sq.m. Ages 60-69 = 85 mL/min/1.73 sq.m. Ages 70+ = 75 mL/min/1.73 sq.m. Chronic Kidney Disease: Less than 60 mL/min/1.73 square meters End Stage Renal Disease: Less than 15 mL/min/1.73 square meters Performed By: #### CBC, DANA, MORPH, ANEU #### [address] [address] #### LD, CMP, GFR, CBCPR #### [place] [address] .CBC PATH REVIEW Collected: 04/15/2018 Status: F Source: [facility] 9:11 AM FOUNDATION REPOSITORY TYPE CODE TESTS RESULT OUT OF REFERENCE UNITS RANGE LAB CBCPR(LOIN C) MILD CBC Path MICROCYTIC Review ANEMIA. SUGGEST IRON STUDIES. Result Comment: Electronically signed by: LUCIAN SILVERIO DO 04.15.2018 14:55 EDT Performed By: #### CBC, ADIFF, MORPH, ANEU #### [address] [address] #### LD, CMP, GFR, CBCPR #### [place] [address] ALLERGIES ALLERGIES DATE TYPE / CODE NAME / CODE REACTION SEVERITY SOURCE 08/23/2018 Drug LISA Hives Unknown [facility] Allergy/4160 Inhibitors/F Hospital [address]889(SNOMED 424150266(RX Repository CT) NORM) 08/23/2018 Drug ramipril/F00 erythema Unknown [facility] Allergy/4160 2111032(RXNO mult[facility] Hospital 64050(SNOMED RM) Repository CT) ENCOUNTERS ENCOUNTERS ADMIT/DISCHARGE ACCOUNT NUMBER ADMITTING ENCOUNTER LOCATION SOURCE CLASS 09/29/2018 [id number] Ambulatory [facility] ding:LABSPEC Repository 08/23/2018/08/23/20 [id number] Ambulatory BMSBuilding: [address] Repository 06/21/2018/07/13/20 [id number] Ambulatory [address] Repository 06/21/2018/07/08/20 [id number] Ambulatory [address] Repository 06/08/2018 [id number] Ambulatory [facility] ding:PSN Repository 06/08/2018 [id number] Ambulatory BMSBuilding: [facility] Repository 05/31/2018 [id number] Ambulatory [facility] ding:PSN Repository 05/31/2018 [id number] Ambulatory BMSBuilding: [facility] Repository 05/21/2018/05/21/20 [id number] Ambulatory BMSBuilding: Aron 18 BMS.[facility] Repository 05/14/2018 [id number] Ambulatory BMSBuilding: Aron BMS.[facility] Repository 04/15/2018/04/15/20 [id number] Ambulatory [address] ding:[facility] Repository 03/12/2018/03/12/20 [id number] Ambulatory [address] ding:RAD [facility] Repository PAYERS PAYERS ENCOUNTER GUARANTOR PAYER SUBSCRIBER SOURCE 09/29/2018 ISAURO KITCHENR Primary ISAURO Sharp Jr.[id number] [address] Insurance:HUMANA Jr.: [facility] [address] MEDICARE [facility] [id number] Number: Repository [phone]: 330 [id number] [phone] (HP) Date:[id number] [address] [place] [address]BH: 09/29/2018 Secondary ISAURO Sharp Insurance:CARESOURCJILLIAN Mg: [facility] Number: [id number] Hospital [id number] Repository Date:2018-09-29 [address]ATTN: [place] [address]JX: 09/29/2018 Tertiary NOT GIVENUNK [place] Insurance:SELF PAY [facility] ([place], [place]) Number: Effective Repository Date:2018-09-29 08/23/2018 ISAURO Crocker DORA Primary ISAURO Sharp Jr.[id number] Insurance:HUMANA Jr.: [facility] [address]APT MEDICARE [facility] [id number], [place] Number: Repository [phone]: 330 [id number] [phone] (HP) Date:6278-88-61XX [address] [place] [address]DU: 08/23/2018 Secondary ISAURO JOHN [place]ray[place] Insurance:CARESOURCEP JrSienna: [facility] Number: [id number] Hospital [id number] Repository Date:2018-05-21 [address]ATTN: [place] [address]BU: 08/23/2018 Tertiary NOT GIVENUNK [place] Insurance:SELF PAY [facility] ([place], [place]) Number: Effective Repository Date:2018-08-13 06/08/2018 ISAURO Crocker DORA Primary ISAURO M DORA A[place] Jr.[id number] [place] Insurance:HUMANA Jr.: [facility] [address]APT MEDICARE [facility] [id number] Number: Repository [phone]: 330 [id number] [phone] (HP) Date:6684-81-94NA [address] [place] [address]DH: 06/08/2018 Secondary ISAURO M DORA Aron Insurance:CARESOURCEP Jr.: [facility] Number: [id number] Hospital [id number] Repository Date:2018-05-21 [address]ATTN: [place] [address]JX: 06/08/2018 Tertiary NOT GIVENUNK Aron Insurance:SELF PAY [facility] ([place], [place]) Number: Effective Repository Date:2018-05-21 06/08/2018 ISAURO Crocker DORA Primary ISAURO M DORA [place] Jr.[id number] Insurance:HUMANA Jr.: [facility] [address] MEDICARE [facility] [id number] Number: Repository [id number]: (330 [id number] [phone] (HP) Date:7009-75-78HV [address] [place] [address]CH: 06/08/2018 Secondary ISAURO M DORA [place] Insurance:CARESOURCEP Jr.: [facility] Number: [id number] Hospital [id number] Repository Date:2018-05-21P [address]ATTN: [place] [address]TF: 06/08/2018 Tertiary NOT GIVENUNK Aron Insurance:SELF PAY [facility], [place]) Number: Effective Repository Date:2018-06-08 05/31/2018 ISAURO KITCHENR Primary ISAURO Anoster Jr.[address] [address] Insurance:HUMANA Jr.: [place] [address] MEDICARE PPOPolicy [id number], [place] Number: Repository [phone]: 330 [id number] [phone] (HP) Date:9286-54-27PF [address] [place] [address]RW: 05/31/2018 Secondary ISAURO Crocker DORA [place] Insurance:CARESOURCEP Jr.: [facility] Number: [id number] Hospital [id number] Repository Date:2018-05-21 [address]ATTN: [place] [address]EU: 05/31/2018 Tertiary NOT GIVENUNK Aron Insurance:SELF PAY [facility], [place]) Number: Effective Repository Date:2018-05-21 05/31/2018 ISAURO KITCHENR Primary ISAURO KITCHENR [place] Jr.[id number] [address] Insurance:HUMANA Jr.: [place] [address] MEDICARE PPOPolicy [id number], [place] Number: Repository [phone]: 330 [id number] [phone] () Date:9471-50-69RU [address] [place] [address]TN: 05/31/2018 Secondary ISAURO Lizzette DORA Aron Insurance:CARESOURCEP Jr.: [facility] Number: [id number] Hospital [id number] Repository Date:2018-05-21 [address]ATTN: [place] [address]MG: 05/31/2018 Tertiary NOT GIVENUNK Aron Insurance:SELF PAY [facility], [place]) Number: Effective Repository Date:2018-05-31 05/21/2018 ISAURO [id number] Primary ISAURO PARRDOB: Aron [facility] Insurance:HUMANA [id number] [address] [place], [place] [address]Qjm: Number: Repository [id number] (HP) Date:3419-06-90DC [address] [place] [address]QY: 05/21/2018 Secondary ISAURO PARRDOB: Aron Insurance:MEDICAIDPol [id number] Community icy Number: Hospital [id number] Repository Date:2018-03-09 05/21/2018 Tertiary NOT GIVENUNK [place] Insurance:SELF PAY [facility], [place] Number: Effective Repository Date:2018-03-12 05/14/2018 ISAURO [id number] Primary ISAURO PARRDOB: Aron [facility] Insurance:HUMANA [id number] [facility] [place], [place]ARE [place] [address]Imv: Number: Repository [id number] (HP) Date:7382-25-02UT [address] [place] [address]SQ: 05/14/2018 Secondary ISAURO PARRDOB: Aron Insurance:MEDICAIDPol [id number] Community icy Number: Hospital [id number] Repository Date:2018-05-14 05/14/2018 Tertiary NOT GIVENUNK Aron Insurance:SELF PAY [facility], [place] Number: Effective Repository Date:2018-05-14 04/15/2018 ISAURO M DORA Primary ISAURO M DORA [facility] JRDOB: Insurance:[employer] [facility] JRDOB: [facility] [place] [id number] CHOICE MEDICAREPolicy [id number] Repository [facility] [address] Number: [address] [facility] #[place] [id number] [address]Ytv: (330) Date:2018-04-15 - [place] [address]Oms: [phone] (HP)Tel: (000) Name:[address] (HP) (WP) [address] [place] [address] (WP) [address]AJ: 04/15/2018 [facility] Insurance:[facility] JRDOB: Foundation MEDICAIDPolicy [id number] Repository Number: [address] [facility] [id number], Date:2018-04-15 [place] [address]Juf: [id number] Name:X[address] Box (HP)Tel: (000) [place], [place] 000[address] (WP) [address]VP: 03/12/2018 [facility] JRDOB: Insurance:[facility] JRDOB: [facility] [id number] CHOICE MEDICAREPolicy [id number] Repository [facility] [address] Number: [address] [facility] #[place], [place] [id number], [address]Eys: (330) Date:2018-02-23 [place] [address]Uux: [phone] (HP)Tel: (000) Name:[address] (HP) (WP) [address] [place] [address] () [address]AQ: 03/12/2018 [facility] JRDOB: Foundation MEDICAIDPolicy [id number] Repository Number: [address] [facility] [id number], Date:2018-02-23 [place] [address]Cxj: [id number] Name:XPO Box (HP)Tel: (000) [facility]], [place] 000[address] (WP) [phone]:
== END ==
PROVIDERS: Family Provider Family Medicine; PCP Family Medicine; Referring Provider Nurse Practitioner Adult Health; Visit Provider Nurse Practitioner Adult Health
DX: R31.29 Other microscopic hematuria (principal)
CPT/HCPCS: 81001; 87077; 87086; 87088; 87186